=== PATIENT | female | born 1990 ===

== ENCOUNTER 2016-11-10 04:21 | Emergency (ER) | payer MEDICAID, OTHER ==
[2016-11-10 04:21] VITALS: BMI 32.8
[2016-11-10 04:29] VITALS: BP 123/64; PULSE 94; RESP 16; TEMP 98.3; O2SAT 98
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
--- NOTE | 2016-11-10 06:15 | ED PDOC ---
- ECG O2 Sat by Pulse Oximetry: 98 Medical Decision Making Medical Decision Makin Patient's care transferred from LEONARDO Dee to Dr. Messer pending podiatry. Scribe Attestation: Documented by Shahida Bishop acting as a scribe for Pastora Messer. [place] Attestation: All medical record entries made by the Scribe were at my direction and personally dictated by me. I have reviewed the chart and agree that the record accurately reflects my personal performance of the history, physical exam, medical decision making, and the department course for this patient. I have also personally directed, reviewed, and agree with the discharge instructions and disposition. Disposition - Clinical Impression Clinical Impression: Head injury, Foot fracture, right, Right ankle sprain, Abrasion of wrist - POA Present On Arrival: None - Disposition Referrals: [facility] [Outside] - 11/11/16 Podiatry Clinic [Outside] - 11/11/16 Disposition: Transfer of Care Disposition Time: 07:00 Condition: STABLE Additional Instructions: Return if not better in 3 days. Prescriptions: Ibuprofen [Motrin] 600 mg PO TID 7 Days Instructions: Ankle Sprain (ED), Foot Fracture in Adults (ED), Head Injury (ED) , Abrasion (ED) Forms: [facility] ED School/Work Excuse Patient Signed Over To: Lan Dumont Handoff Comments: Pending podiatry consult
--- NOTE | 2016-11-10 07:22 | ED PDOC ---
- ECG O2 Sat by Pulse Oximetry: 98 - Progress ED Course And Treament: 813: Stable. AAOx3. Spoke with podiatry. Pt. with 5th metatarsal fx. Fu with Dr. Jimenez. Ambulated with crutches. No weight on foot. Medical Decision Making Medical Decision Making: Time: 0700 Patient signed out by Dr. Messer pending podiatry consult Scribe Attestation: Documented by Rena Santos acting as a scribe for Lan Dumont MD MD Scribe Attestation: All medical record entries made by the Scribe were at my direction and personally dictated by me. I have reviewed the chart and agree that the record accurately reflects my personal performance of the history, physical exam, medical decision making, and the department course for this patient. I have also personally directed, reviewed, and agree with the discharge instructions and disposition. Disposition - Clinical Impression Clinical Impression: Head injury, Foot fracture, right, Right ankle sprain, Abrasion of wrist - POA Present On Arrival: Falls Or Trauma - Disposition Referrals: [facility] [Outside] - 11/11/16 Podiatry Clinic [Outside] - 11/11/16 Disposition: Routine/Home Disposition Time: 08:16 Condition: STABLE Additional Instructions: Return if not better in 3 days. Prescriptions: Ibuprofen [Motrin] 600 mg PO TID 7 Days Instructions: Head Injury (ED), Foot Fracture in Adults (ED), Abrasion (ED), Ankle Sprain (ED)
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
--- NOTE | 2016-11-10 09:36 | RAD ---
PROCEDURE: Right Ankle Radiographs. HISTORY: fall, pain/swelling COMPARISON: None FINDINGS: BONES: Bone alignment and mineralization are. No fracture. JOINTS: Normal. Ankle mortise maintained. Talar dome intact SOFT TISSUES: There is moderate periarticular soft tissue swelling. OTHER FINDINGS: None. IMPRESSION: No acute fracture or dislocation. Moderate periarticular soft tissue swelling.
--- NOTE | 2016-11-10 09:37 | RAD ---
PROCEDURE: Right Foot Radiographs. HISTORY: fall, pain/swelling COMPARISON: None. FINDINGS: BONES: There is an oblique nondisplaced fracture in the distal 5th metatarsal. JOINTS: Normal. SOFT TISSUES: There is mild lateral soft tissue swelling. OTHER FINDINGS: None. IMPRESSION: Oblique nondisplaced fracture in the distal 5th metatarsal with overlying soft tissue swelling.
== END 2016-11-10 09:11 | disposition home or self-care (01) ==
LOC: H.ER 04:21
DX: S09.90XA Unspecified injury of head, initial encounter (principal); S93.401A Sprain of unspecified ligament of right ankle, initial encounter; M25.571 Pain in right ankle and joints of right foot; S60.819A Abrasion of unspecified wrist, initial encounter; S62.601A Fracture of unspecified phalanx of left index finger, initial encounter for closed fracture; Y04.0XXA Assault by unarmed brawl or fight, initial encounter; Y92.89 Other specified places as the place of occurrence of the external cause; F17.210 Nicotine dependence, cigarettes, uncomplicated